=== PATIENT | male | born 1965 | race Caucasian/White ===

== ENCOUNTER 2022-11-04 10:43 | Outpatient (CLI) | payer BC, SELFPAY ==
[2022-11-04 13:53] LABS: Basophils Absolute Auto 0.03 K/uL (0.00-0.30); Basophils Percent Auto 0.3 % (0.0-3.0); Eosinophils Absolute Auto 0.13 K/uL (0.00-0.50); Eosinophils Percent Auto 1.4 % (0.0-7.0); Hematocrit 40.9 % (37.0-53.0); Hemoglobin* 13.9 gm/dL (13.5-17.5); Immature Granulocytes Abs Auto 0.04 K/uL (0.00-0.30); Immature Granulocytes Pct Auto 0.4 %; Mean Corpuscular HGB Conc 34 gm/dL (32-36); Mean Corpuscular Hemoglobin 32 pg (26-34); Mean Corpuscular Volume 93 fL (80-100); Monocytes Percent Auto 15.9 % (0.0-11.0); Neutrophils Absolute Auto 5.87 K/uL (1.7-7.0); Platelet Count* 473 K/uL (140-440); RDW Coefficient of Variation % 12.1 % (11.5-15.5); Red Blood Count 4.39 m/uL (4.30-5.90); White Blood Count* 9.05 K/uL (4.50-11.00)
[2022-11-04 13:59] LABS: Albumin* 3.9 g/dL (3.3-5.0); Chloride* 101 mmol/L (96-114); Sodium* 136 mmol/L (135-149)
[2022-11-04 14:00] LABS: Potassium* 4.5 mmol/L (3.6-5.1)
[2022-11-04 14:02] LABS: Bilirubin Total* 0.6 mg/dL (0.1-1.5); Carbon Dioxide* 26 mmol/L (20-32); Creatinine* 0.7 mg/dL (0.5-1.5); Estimated Glomerular Filt Rate 106 ml/min
[2022-11-04 14:03] LABS: Alanine Aminotransferase* 36 U/L (4-50); Alkaline Phosphatase* 83 U/L (40-150); Aspartate Amino Transferase* 35 U/L (12-35); Blood Urea Nitrogen* 19 mg/dL (7-30); Calcium* 8.9 mg/dL (8.4-10.6); Creatine Kinase* 161 U/L (54-186); Glucose* 94 mg/dL (60-115); Total Protein* 7.1 g/dL (6.0-8.3)
[2022-11-04 14:05] LABS: C Reactive Protein* 5.8 mg/dL (0.5-1.0)
[2022-11-04 14:07] LABS: Slide Review Reflex No
[2022-11-04 14:29] LABS: PSA Screen* 0.95 ng/mL (0.10-4.00)
[2022-11-05 15:13] LABS: Rheumatoid Factor <10 IU/mL (0-14)
[2022-11-06 00:58] LABS: Anti-Nuclear Ab(ANA)IgG ELISA None Detected (None Detected)
== END 2022-11-04 10:44 | disposition home or self-care (01) ==
PROVIDERS: PCP Family Medicine; Visit Provider Family Medicine
DX: M25.50 Pain in unspecified joint (principal); Z12.5 Encounter for screening for malignant neoplasm of prostate
CPT/HCPCS: 80053; 82550; 83735; 84153; 85025; 86039; 86140; 86431; 86618

== ENCOUNTER 2022-11-12 09:02 | Outpatient (CLI) | payer BC, SELFPAY | END 2022-11-12 09:03 | disposition home or self-care (01) | PROVIDERS: PCP Family Medicine; Visit Provider Family Medicine | DX: M35.3 Polymyalgia rheumatica (principal) | CPT/HCPCS: 85651 ==

== ENCOUNTER 2022-12-24 08:29 | Outpatient (CLI) | payer BC, SELFPAY ==
[2022-12-24 14:48] LABS: Vitamin D 25 Hydroxy* 30 ng/mL (30-80)
== END 2022-12-24 08:30 | disposition home or self-care (01) ==
PROVIDERS: PCP Family Medicine; Visit Provider Family Medicine
DX: E55.9 Vitamin D deficiency, unspecified (principal)
CPT/HCPCS: 82306; 85651

== ENCOUNTER 2023-10-14 11:59 | Outpatient (CLI) | payer BC, SELFPAY | END 2023-10-14 12:00 | disposition home or self-care (01) | PROVIDERS: PCP Family Medicine; Visit Provider Family Medicine | DX: M35.3 Polymyalgia rheumatica (principal); Z13.6 Encounter for screening for cardiovascular disorders; Z13.9 Encounter for screening, unspecified | CPT/HCPCS: 80048; 80061; 85651 ==

== ENCOUNTER 2024-10-13 08:31 | Outpatient (CLI) | payer BC, SELFPAY | END 2024-10-13 08:32 | disposition home or self-care (01) | PROVIDERS: PCP Family Medicine; Visit Provider Family Medicine | DX: M35.3 Polymyalgia rheumatica (principal); Z13.6 Encounter for screening for cardiovascular disorders; Z12.5 Encounter for screening for malignant neoplasm of prostate | CPT/HCPCS: 80048; 80061; 85651; G0103 ==

== ENCOUNTER 2025-08-16 09:06 | Outpatient (CLI) | payer BC, SELFPAY | END 2025-08-16 09:07 | disposition home or self-care (01) | PROVIDERS: PCP Family Medicine; Visit Provider Family Medicine | DX: M35.3 Polymyalgia rheumatica (principal); Z13.6 Encounter for screening for cardiovascular disorders | CPT/HCPCS: 80048; 80061; 85651 ==